=== PATIENT | female | born 1990 | race Caucasian/White ===

== ENCOUNTER 2016-10-31 14:42 | Emergency (ER) | payer SELFPAY | END 2016-10-31 15:41 | disposition home or self-care (01) | LOC: ER1 14:42 | DX: J06.9 Acute upper respiratory infection, unspecified (principal); F17.210 Nicotine dependence, cigarettes, uncomplicated | CPT/HCPCS: 87081; 87880; 99283 ==

== ENCOUNTER 2017-01-19 03:29 | Emergency (ER) | payer SELFPAY ==
[2017-01-19 04:45] LABS: HEMOGLOBIN 12.9 gm/dl (12.3-15.3); WHITE BLOOD COUNT 8.6 K/UL (4.5-11.0)
[2017-01-19 05:21] LABS: BUN/CREATININE RATIO 18 (0-10)
== END 2017-01-19 08:38 | disposition home or self-care (01) ==
LOC: ER1 03:29
PROVIDERS: Student in an Organized Health Care Education/Training Program
DX: R10.84 Generalized abdominal pain (principal); E87.6 Hypokalemia; R19.7 Diarrhea, unspecified; R11.0 Nausea; F17.210 Nicotine dependence, cigarettes, uncomplicated
CPT/HCPCS: 36415; 80053; 81001; 82150; 83690; 84703; 85025; 96361; 96374; 96375; 99285; J2270; J2405